=== PATIENT | female | born 1975 | race Caucasian/White ===

== ENCOUNTER 2024-11-10 11:41 | Emergency (ER) | payer MEDICAID, SELFPAY ==
[2024-11-10 11:55] VITALS: BP 187/112; PULSE 73; RESP 18; TEMP 36.6; O2SAT 96; BMI 27.4
--- NOTE | 2024-11-10 12:03 | W.ED.EXTPRO ---
HPI - Extremity Problem General: Chief complaint: Extremity Problem,Nontraumatic Stated complaint: pain in both legs Time Seen by Provider: 11/10/24 11:51 Source: patient Mode of arrival: ambulatory Limitations: no limitations History of Present Illness: 49-year-old female has a history of neuropathy is chronic leg pain she states she just moved here she has been out of her Lyrica for the last 3 days she states she is having some increased leg pain that feels like her neuropathy denies any injuries denies any fever she states that she needs a refill of her Lyrica Associated symptoms: Deny chest pain, fever(s) or rash Related Data Home Medications ?Medication ?Instructions ?Recorded ?Confirmed albuterol sulfate 90 mcg/actuation 1 inh inhalation QID 02/13/23 02/13/23 aerosol inhaler (Ventolin HFA) atorvastatin 20 mg tablet 20 mg PO DAILY 02/13/23 02/13/23 budesonide-formoterol HFA 160 1 inh inhalation BID 02/13/23 02/13/23 mcg-4.5 mcg/actuation aerosol inhaler (Symbicort) carvedilol 25 mg tablet 25 mg PO BID 02/13/23 02/13/23 cetirizine 10 mg capsule (All Day 10 mg PO DAILY PRN 02/13/23 02/13/23 Allergy (cetirizine)) chlorthalidone 25 mg tablet 25 mg PO DAILY 02/13/23 02/13/23 clopidogrel 75 mg tablet 75 mg PO DAILY 02/13/23 02/13/23 furosemide 40 mg tablet 40 mg PO DAILY 02/13/23 02/13/23 hydrocodone 10 mg-acetaminophen 15 ml PO BID PRN 02/13/23 02/13/23 325 mg/15 mL oral solution hydroxyzine HCl 25 mg tablet 25 mg PO BID PRN 02/13/23 02/13/23 isosorbide mononitrate 30 mg 30 mg PO DAILY 02/13/23 02/13/23 tablet,extended release 24 hr lisinopril 40 mg tablet 40 mg PO DAILY 02/13/23 02/13/23 methimazole 5 mg tablet 5 mg PO BID 02/13/23 02/13/23 nitroglycerin 0.4 mg sublingual 0.4 mg sublingual Q5M PRN 02/13/23 02/13/23 tablet pregabalin 50 mg capsule (Lyrica) 50 mg PO TID 02/13/23 02/13/23 venlafaxine 75 mg capsule,extended 75 mg PO DAILY 02/13/23 02/13/23 release 24 hr Previous Rx's ?Medication ?Instructions ?Recorded amoxicillin 875 mg-potassium 1 tab PO BID 10 days #20 tabs 02/13/23 clavulanate 125 mg tablet fluconazole 150 mg tablet 150 mg PO Q3D 2 doses #2 tabs 02/13/23 (Diflucan) pregabalin 200 mg capsule (Lyrica) 200 mg PO BID #60 caps 11/10/24 Allergies Allergy/AdvReac Type Severity Reaction Status Date / Time No Known Allergies Allergy Unverified 02/13/23 15:03 Review of Systems Const: Denies: fever(s), chills, body aches or change in appetite ENMT: Denies: throat pain or dental pain Card: Denies: chest pain Resp: Denies: dyspnea GI: Denies: abdominal pain, nausea, vomiting or diarrhea Musc: Reports: extremity pain; Denies: neck pain or back pain Skin/Breast: Denies: rash Neuro: Denies: headache(s) Physical Exam Const: COMMON NORMALS: no acute distress, patient oriented x3 and healthy appearing HENMT: COMMON NORMALS: normocephalic and atraumatic HEAD & SCALP: normocephalic and atraumatic Eye: COMMON NORMALS: conjunctivae normal CONJUNCTIVA: Yes conjunctivae normal Neck/C-Spine: COMMON NORMALS: full ROM and supple Chest: COMMONS NORMALS: normal inspection of the chest Resp: COMMON NORMALS: normal respiratory effort Cardio: COMMON NORMALS: regular rate RATE: regular rate Extremity: COMMON NORMALS: normal to inspection and full ROM NARRATIVE EXTREMITY EXAM: Tenderness noted to bilateral legs no swelling no warmth distal pulses sensations intact Neuro: COMMON NORMALS: patient oriented x3, moves all extremities and no focal motor deficits Psych: COMMON NORMALS: mental status grossly normal, Normal thought process present and cooperative THOUGHT PROCESS: Normal thought process present Skin: COMMON NORMALS: no rashes or lesions noted and no wounds GENERAL SKIN EXAM: no rashes or lesions noted Course Vital Signs: Vital signs: Vital Signs Temperature 97.9 F 11/10/24 11:55 Pulse Rate 73 11/10/24 11:55 Respiratory Rate 18 11/10/24 11:55 Blood Pressure 187/112 11/10/24 11:55 Pulse Oximetry 96 11/10/24 11:55 Oxygen Delivery Me thod Room Air 11/10/24 11:55 MDM - Extremity (Nontraumatic) Medical Decision Making Patient presents for leg pains likely from her neuropathy exam here is benign did give her pain medicine along with Lyrica here we will refill her Lyrica as well she is to follow-up with PCP return if worsening she understands agrees to plan Medical Records I reviewed the patient's medical records. No radiology studies performed this visit Discharge Plan Discharge Patient Disposition: Home Clinical Impression: Bilateral leg pain Condition: Stable Prescriptions: New pregabalin [Lyrica] 200 mg capsule 200 mg PO BID Qty: 60 0RF No Action clopidogrel 75 mg tablet 75 mg PO DAILY carvedilol 25 mg tablet 25 mg PO BID Rx Instructions: must administer with a meal/food methimazole 5 mg tablet 5 mg PO BID hydroxyzine HCl 25 mg tablet 25 mg PO BID PRN atorvastatin 20 mg tablet 20 mg PO DAILY venlafaxine 75 mg capsule,extended release 24hr 75 mg PO DAILY All Day Allergy (cetirizine) 10 mg capsule 10 mg PO DAILY PRN isosorbide mononitrate 30 mg tablet extended release 24 hr 30 mg PO DAILY nitroglycerin 0.4 mg tablet, sublingual 0.4 mg sublingual Q5M PRN Rx Instructions: do not exceed 3 doses per episode albuterol sulfate [Ventolin HFA] 90 mcg/actuation HFA aerosol inhaler 1 inh inhalation QID lisinopril 40 mg tablet 40 mg PO DAILY furosemide 40 mg tablet 40 mg PO DAILY chlorthalidone 25 mg tablet 25 mg PO DAILY budesonide-formoterol [Symbicort] 160-4.5 mcg/actuation HFA aerosol inhaler 1 inh inhalation BID pregabalin [Lyrica] 50 mg capsule 50 mg PO TID hydrocodone-acetaminophen 10-325 mg/15 mL solution 15 ml PO BID PRN amoxicillin-pot clavulanate 875-125 mg tablet 1 tab PO BID 10 Days Qty: 20 0RF fluconazole [Diflucan] 150 mg tablet 150 mg PO Q3D Qty: 2 0RF Discharge Orders: Discharge ED (Routine); Ordered 11/10/24 Ordered By: Digna Moore Discharge Diet: Advance as tolerated Discharge Activity: Resume usual activity Patient Instructions: Leg Pain (ED) Print Language: Yi Coding Level of Care Code 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
[2024-11-10] MEDS: HYDROcodone-acetaminophen 7.5-325 mg Tablet 1 TAB PO (12:10)
[2024-11-10] MEDS: pregabalin 75 mg Capsule 225 MG PO (12:10)
[2024-11-10 12:43] VITALS: BP 179/111; PULSE 76; O2SAT 95
== END 2024-11-10 12:44 | disposition home or self-care (01) ==
PROVIDERS: Emergency Provider Emergency Medicine
DX: M79.604 Pain in right leg (principal); M79.605 Pain in left leg; Z79.02 Long term (current) use of antithrombotics/antiplatelets
CPT/HCPCS: 99283